=== PATIENT | male | born 1990 | race African-American/Black ===

== ENCOUNTER 2017-03-22 11:26 | Emergency (ER) | payer MEDICAID ==
[~2017-03-22] VITALS: Ht 172.7 cm; Wt 122.5 kg
[~2017-03-22 11:26] MED LIST: CORTISPORIN10 ML BOTH EARS; IBUPROFEN600 MG PO; NKM
[2017-03-22 12:11] LABS: APPEARANCE,URINE CLEAR; KETONES,URINE NEGATIVE (NEGATIVE); LEUKOCYTE ESTERASE ,URINE 1+ (NEGATIVE); NITRITE,URINE NEGATIVE (NEGATIVE); PH,URINE 6 (4.5-8.0); PROTEIN,URINE NEGATIVE (NEGATIVE); UROBILINOGEN,URINE NORMAL MG/DL (0.0-1.0)
[2017-03-22 12:15] LABS: BACTERIA,URINE FEW /HPF; RBC,URINE 0-2 /HPF (0 - 0); SQUAMOUS EPITHELIAL CELL,UR FEW /LPF (NONE/OCC)
[2017-03-22 12:22] VITALS: BP 135/79
[2017-03-22] MEDS ORDERED: VIBRAMYCIN100 MG ORAL (12:44)
[2017-03-22] MEDS ORDERED: cefTRIAXone 1 GM in NS 55 ML IVPB ONE (12:45)
[2017-03-22 13:22] VITALS: BP 135/79
--- NOTE | 2017-03-22 14:40 | Emergency Room Report ---
History of Present Illness General Chief Complaint: Male Urogenital Problems Source: Patient Present Illness HPI 26-year-old male presents to ED complaining of dysuria x3 days. Notes burning urination. Notes redness and irritation to the tip of his penis. Pain is dull. 5/10. Nonradiating. Denies fevers or chills. Denies discharge. Denies flank pain. States he is sexually active but with one partner. No other aggravating relieving. Denies any other associated symptoms Allergies: Coded Allergies: No Known Allergies (Unverified , 03/11/13) Patient History Past Medical History: none Past Surgical History: none Pertinent Family History: none Social History: Denies: alcohol use, drug use, smoking Immunizations: UTD Reviewed Nursing Documentation: PMH: Agreed, PSxH: Agreed Nursing Documentation-PMH Past Medical History: No Stated History Review of Systems All Other Systems: negative except mentioned in HPI Physical Exam Vital Signs Date Time Temp Pulse Resp B/P Pulse Ox O2 Delivery O2 Flow Rate FiO2 03/22/17 11:54 97.9 50 14 135/79 94 Room Air Sp02 EP Interpretation: reviewed, normal General Appearance: no apparent distress, alert, GCS 15, non-toxic Head: normocephalic Eyes: bilateral eye PERRL, bilateral eye normal inspection ENT: normal ENT inspection Neck: normal inspection Respiratory: normal inspection Cardiovascular #1: normal inspection Gastrointestinal: normal inspection Rectal: deferred Genitourinary: no CVA tenderness, other - erythema to urethral meatus Musculoskeletal: back normal, gait/station normal, normal range of motion, non- tender Neurologic: alert, oriented x3, responsive, motor strength/tone normal, sensory intact, speech normal Psychiatric: normal inspection Skin: normal inspection Lymphatic: normal inspection Medical Decision Making Diagnostic Impression: Primary Impression: Urethritis ER Course Hospital Course 26-year-old male presents to ED complaining of dysuria with urethral erythema Differential diagnoses include: UTI, cystitis, pyelonephritis Clinical course Patient placed on stretcher. After initial history and physical I ordered UA UA noted to be unremarkable. Symptoms more likely consistent with urethritis. Patient denies any discharge. Denies unprotected sex with multiple partners. We will treat clinically Given Rocephin in ED. Will prescribe doxycycline Diagnosis - urethritis Stable and discharged home with prescriptions for Rx doxycycline. Instructed to followup with PMD. Return to ED if symptoms recur or worsen Labs Test 03/22/17 12:00 Urine Color Pale yellow Urine Appearance Clear Urine pH 6 (4.5-8.0) Urine Specific [place] 1.015 (1.005-1.035) Urine Protein Negative (NEGATIVE) Urine Glucose (UA) Negative (NEGATIVE) Urine Ketones Negative (NEGATIVE) Urine Occult Blood Negative (NEGATIVE) Urine Nitrite Negative (NEGATIVE) Urine Bilirubin Negative (NEGATIVE) Urine Urobilinogen Normal MG/DL (0.0-1.0) Urine Leukocyte Esterase 1+ (NEGATIVE) Urine RBC 0-2 /HPF (0 - 0) Urine WBC 2-4 /HPF (0 - 0) Urine Squamous Epithelial Cells Few /LPF (NONE/OCC) Urine Bacteria Few /HPF (NONE) Last Vital Signs Date Time Temp Pulse Resp B/P Pulse Ox O2 Delivery O2 Flow Rate FiO2 03/22/17 13:22 97.9 68 16 135/79 96 Room Air Status: improved Disposition: HOME, SELF-CARE Condition: Stable Scripts Doxycycline Hyclate* (VIBRAMYCIN*) 100 Mg Capsule 100 MG ORAL EVERY 12 HOURS, #14 CAP 0 Refills Prov: YESENIA MAC M.D. 03/22/17 Referrals: NOT CHOSEN [facility]/,REFERRING Patient Instructions: Urethritis, Adult YESENIA MAC M.D. Mar 22, 2017 14:40
== END 2017-03-22 13:15 | disposition home or self-care (01) ==
LOC: EMR 12:25
DX: N34.2 Other urethritis (principal)
CPT/HCPCS: 81003; 96372; 99283; J0696

== ENCOUNTER 2017-05-29 15:51 | Emergency (ER) | payer MEDICAID ==
[~2017-05-29] VITALS: Ht 172.7 cm; Wt 117.0 kg
[~2017-05-29 15:51] MED LIST changes: +VIBRAMYCIN100 MG ORAL
[2017-05-29] MEDS ORDERED: IBUPROFEN600 MG ORAL (17:24)
--- NOTE | 2017-05-29 17:24 | Emergency Room Report ---
History of Present Illness General Chief Complaint: Pain Source: Patient (Sissy Leal) Present Illness HPI 26 YO Male with 8/10 in severity anterior left knee pain that had onset s/p lower extremity work out. pt. reports pain is exacerbated with flexion and when walking, and relieved with rest. pt. denies appreciable trauma or fall. denies swelling, bruising, erythema, or increased temperature to palpation. denies recent open wounds, fevers or chills. denies previous injury to the extremity. Denies numbness tingling or loss of sensation or gross motor movements of the extremities, incontinence of bowel or bladder. Denies CP, Palpitations, LOC, AMS, dizziness, Changes in Vision, Sensation, paresthesias, or a sudden severe headache. (Sissy Leal) Allergies: Coded Allergies: No Known Allergies (Unverified , 03/11/13) Patient History Past Medical History: see triage record Past Surgical History: none Pertinent Family History: none Immunizations: UTD Reviewed Nursing Documentation: PMH: Agreed, PSxH: Agreed (Sissy Leal) Nursing Documentation-PMH Past Medical History: No Stated History (Sissy Leal) Review of Systems All Other Systems: negative except mentioned in HPI (Sissy Leal) Physical Exam Vital Signs Date Time Temp Pulse Resp B/P Pulse Ox O2 Delivery O2 Flow Rate FiO2 05/29/17 15:59 98.1 81 15 115/75 97 Room Air Sp02 EP Interpretation: reviewed, normal General Appearance: no apparent distress, alert, GCS 15, non-toxic Head: normocephalic, atraumatic Eyes: bilateral eye normal inspection, bilateral eye PERRL ENT: hearing grossly normal, normal voice Neck: full range of motion Respiratory: lungs clear, normal breath sounds, speaking full sentences Cardiovascular #1: regular rate, rhythm, no edema Cardiovascular #2: 2+ dorsalis pedis (L) - posterior tibialis is 2+ Musculoskeletal: back normal, normal range of motion, no calf tenderness, tender - No appreciable TTP, no increased laxity on valgus or varus stressing. pt. does have pain with flexion, negative anterior and posterior drawer sign. pain with grind text, however pt. also has pain with full weight bearing just prior to grind test. no appreciable swelling, bruising, erythema or increased temperature to palpation, no palpable throbbing mass on the posterior aspect. Neurologic: alert, oriented x3, responsive, motor strength/tone normal, sensory intact, speech normal Psychiatric: judgement/insight normal, memory normal, mood/affect normal Skin: normal color, no rash, warm/dry, well hydrated (Sissy Leal.ACristy) Medical Decision Making PA Attestation Dr. Ugalde is my supervising Physician whom patient management has been discussed with. (Sissy Leal P.ACristy) Diagnostic Impression: Primary Impression: Left knee sprain Qualified Codes: S83.92XA - Sprain of unspecified site of left knee, initial encounter ER Course 26 YO Male with 8/10 in severity anterior left knee pain that had onset s/p lower extremity work out. pt. reports pain is exacerbated with flexion and when walking, and relieved with rest. pt. denies appreciable trauma or fall. denies swelling, bruising, erythema, or increased temperature to palpation. denies recent open wounds, fevers or chills. denies previous injury to the extremity. Denies numbness tingling or loss of sensation or gross motor movements of the extremities, incontinence of bowel or bladder. Denies CP, Palpitations, LOC, AMS, dizziness, Changes in Vision, Sensation, paresthesias, or a sudden severe headache. Ddx considered but are not limited to Fracture, dislocation, contusion, Sprain/ Strain/Spasm, Septic joint, gout, Ligamental injury. Vital signs: are WNL, pt. is afebrile H&PE are most consistent with musculoskeletal injury will perform imaging to r/ o fractures/dislocations. ORDERS: - X-ray Left knee 3 views - negative for fx, Dislocation, or significant soft tissue injury, per preliminary read in ED by Dr. Ugalde - interpretation is scribed by PA. ED INTERVENTIONS: - Motrin PO Pt. was also examined by Dr. Ugalde -Sidney wrap applied to the left knee by photonics technician. Pt. remains neurovascularly intact. -D/W pt. that he is stable for outpatient follow up with his PMD, and that he will be d/c with conservative treatment, and rest. d/w pt. if symptoms continue MRI may be required. d/w pt. to avoid doing squats and other strenuous lower extremity work outs for at least two weeks. DISCHARGE: At this time pt. is stable for d/c to home. Will provide printed patient care instructions, and any necessary prescriptions. Care plan and follow up instructions have been discussed with the patient prior to discharge. (Sissy Leal) ER Course Patient examined by me. I agree with plan. (Myles Ugalde M.D.) Other X-Ray Diagnostic Results Other X-Ray Diagnostic Results : Interpreting ER Provider: Scribe documentation reviewed by me and is accurate, Myles Ugalde MD. (Myles Ugalde M.D.) Last Vital Signs Date Time Temp Pulse Resp B/P Pulse Ox O2 Delivery O2 Flow Rate FiO2 05/29/17 15:59 98.1 81 15 115/75 97 Room Air (Sissy Leal) Disposition: HOME, SELF-CARE Condition: Stable Scripts Ibuprofen* (MOTRIN*) 600 Mg Tablet 600 MG ORAL THREE TIMES A DAY, #30 TAB 0 Refills Prov: Sissy Leal 05/29/17 Referrals: [facility],REFERR[facility] (PCP) Departure Forms: Return to Work Return to Work Date: Jun 01, 2017 Work Restrictions: No Heavy Lifting, No Prolonged Standing Other Restrictions: light duty x 1 week. Return to Full Activity: Jun 09, 2017 Patient Instructions: Knee Pain Additional Instructions: Take medications as directed. Follow up with a Primary Care Provider in 3-5 days, even if your symptoms have resolved. If symptoms persist MRI may be required. --Please review list of primary care clinics, if you do not already have a primary care provider Return sooner to ED if new symptoms occur, or current symptoms become worse. - Please note that this Emergency Department Report was dictated using [employer]drain[employer] inspector technology software, occasionally this can lead to erroneous entry secondary to interpretation by the dictation equipment. Sissy Leal May 29, 2017 17:24 Myles Ugalde M.D. Jun 01, 2017 05:55
[2017-05-29 17:38] VITALS: BP 115/75
[2017-05-29 17:39] VITALS: BP 115/75
--- NOTE | 2017-05-30 11:33 | Diagnostic Imaging Report ---
Indication: Pain 3 views of the left knee were obtained. Findings: No acute fracture, malalignment, or joint effusion are identified. Joint space is relatively well-maintained. Bone mineralization is within normal limits for age. Impression: Negative exam
== END 2017-05-29 17:42 | disposition home or self-care (01) ==
LOC: EMR 16:20
DX: S83.92XA Sprain of unspecified site of left knee, initial encounter (principal); X58.XXXA Exposure to other specified factors, initial encounter; Y93.9 Activity, unspecified; Y92.9 Unspecified place or not applicable
CPT/HCPCS: 29530; 99283

== ENCOUNTER 2018-02-06 11:10 | Emergency (ER) | payer MEDICAID ==
[~2018-02-06] VITALS: Ht 170.2 cm; Wt 118.8 kg
[~2018-02-06 11:10] MED LIST changes: +IBUPROFEN600 MG ORAL
[2018-02-06] MEDS ORDERED: Metoclopramide 10mg/2ml Inj IVP ONE (12:00)
[2018-02-06] MEDS ORDERED: DiphenhydrAMINE 50mg/ml Inj IVP ONE (12:00)
--- NOTE | 2018-02-06 12:02 | Emergency Room Report ---
History of Present Illness General Chief Complaint: Nausea, Vomiting, and Diarrhea Source: Patient Present Illness HPI Patient had gone fishing yesterday Had a burger on the boat Few hours after getting back he had increased diarrhea abdominal cramping also this morning reports vomiting Denies any chest pain or shortness of breath denies any back or flank pain Patient feels generally malaised and weak denies any rash Abdominal cramping has improved however given the diarrhea he was concerned Allergies: Coded Allergies: No Known Allergies (Unverified , 03/11/13) Patient History Past Medical History: see triage record Pertinent Family History: none Reviewed Nursing Documentation: PMH: Agreed; PSxH: Agreed Nursing Documentation-PMH Past Medical History: No Stated History Review of Systems All Other Systems: negative except mentioned in HPI Physical Exam Vital Signs Date Time Temp Pulse Resp B/P (MAP) Pulse Ox O2 Delivery O2 Flow Rate FiO2 02/06/18 11:14 98.1 69 18 148/88 100 Room Air 98.1 Sp02 EP Interpretation: reviewed, normal General Appearance: well appearing, no apparent distress Head: normocephalic, atraumatic Eyes: bilateral eye PERRL, bilateral eye EOMI ENT: hearing grossly normal, normal pharynx, TMs + canals normal, uvula midline Neck: full range of motion, supple, no meningismus, no bony tend Respiratory: lungs clear, normal breath sounds, no rhonchi, no respiratory distress, no retraction, no accessory muscle use Cardiovascular #1: normal peripheral pulses, regular rate, rhythm, no edema, no gallop, no JVD, no murmur Gastrointestinal: normal bowel sounds, non tender, soft, no mass, no organomegaly, non-distended, no guarding, no hernia, no pulsatile mass, no rebound Genitourinary: no CVA tenderness Musculoskeletal: normal inspection Neurologic: oriented x3, responsive, decontamination worker III-XII nml as tested, motor strength/ tone normal, sensory intact Psychiatric: mood/affect normal Skin: normal color, no rash, warm/dry, palpation normal Lymphatic: normal inspection, no adenopathy Medical Decision Making Diagnostic Impression: Primary Impression: Nausea, vomiting, and diarrhea ER Course With the history exam and presentation, multiple differentials considered, including but not limited to appendicitis, gastritis, cholecystitis, diverticulitis Patient clinically is consistent with infectious pathology Blood work is otherwise appropriate Patient has done significantly better throughout his stay further imaging was not performed patient does not have any lower abdominal discomfort initially or on repeat exam and will have close outpatient follow-up CBC negative CMP negative Last Vital Signs Date Time Temp Pulse Resp B/P (MAP) Pulse Ox O2 Delivery O2 Flow Rate FiO2 02/06/18 11:14 98.1 69 18 148/88 100 Room Air 98.1 Status: improved Disposition: HOME, SELF-CARE Condition: Improved Scripts Ondansetron* (ZOFRAN*) 4 Mg Tablet 4 MG ORAL Q6H PRN for Nausea & Vomiting for 5 Days, TAB Prov: Callie Wagner DO 02/06/18 Additional Instructions: Patient is provided with the discharge instructions notified to follow up with primary doctor in the next 2-3 days otherwise return to the er with any worsening symptoms. Please note that this report is being documented using [employer] technology. This can lead to erroneous entry secondary to incorrect interpretation by the dictating instrument. Callie Wagner DO Feb 06, 2018 12:02
[2018-02-06 12:18] VITALS: BP 148/88
[2018-02-06 12:32] LABS: BASOPHILS % (AUTO) 1.6 % (0.0-2.0); EOSINOPHILS % (AUTO) 0.6 % (0.0-3.0); HEMATOCRIT 44.2 % (42.0-52.0); HEMOGLOBIN 15.2 G/DL (14.2-18.0); LYMPHOCYTES % (AUTO) 30.4 % (20.0-45.0); MEAN CORPUSCULAR VOLUME 90 FL (80-99); MONOCYTES % (AUTO) 9.3 % (1.0-10.0); NEUTROPHILS % (AUTO) 58.2 % (45.0-75.0); PLATELET COUNT 266 K/UL (150-450); RED BLOOD COUNT 4.91 M/UL (4.70-6.10); RED CELL DISTRIBUTION WIDTH 11.9 % (11.6-14.8); WHITE BLOOD COUNT 5.1 K/UL (4.8-10.8)
[2018-02-06 12:49] LABS: ANION GAP 8 mmol/L (5-15); BLOOD UREA NITROGEN 11 mg/dL (7-18); CALCIUM 8.8 MG/DL (8.5-10.1); CARBON DIOXIDE 27 MMOL/L (21-32); CHLORIDE 106 MMOL/L (98-107); POTASSIUM 4.2 MMOL/L (3.5-5.1); SODIUM 141 MMOL/L (136-145)
[2018-02-06 12:53] LABS: ALANINE AMINOTRANSFERASE 42 U/L (12-78); ALBUMIN 3.7 G/DL (3.4-5.0); ALBUMIN/GLOBULIN RATIO 0.9 (1.0-2.7); ALKALINE PHOSPHATASE 64 U/L (46-116); ASPARTATE AMINO TRANSFERASE 34 U/L (15-37); BILIRUBIN,TOTAL 0.9 MG/DL (0.2-1.0)
[2018-02-06] MEDS ORDERED: ZOFRAN4 M3 ORAL (13:00)
[2018-02-06 13:10] VITALS: BP 100/66
== END 2018-02-06 13:21 | disposition home or self-care (01) ==
LOC: EMR 12:09
DX: R11.2 Nausea with vomiting, unspecified (principal); R19.7 Diarrhea, unspecified
CPT/HCPCS: 36415; 80053; 83690; 85025; 96361; 96374; 96375; 99284; J1200; J2765

== ENCOUNTER 2018-04-30 09:22 | Emergency (ER) | payer MEDICAID ==
[~2018-04-30] VITALS: Ht 172.7 cm; Wt 117.9 kg
[~2018-04-30 09:22] MED LIST changes: +ZOFRAN4 M3 ORAL
[2018-04-30 09:34] VITALS: BP 128/72
[2018-04-30] MEDS ORDERED: AMOXICILLIN500 MG ORAL (09:42)
[2018-04-30] MEDS ORDERED: IBUPROFEN600 MG ORAL (09:42)
[2018-04-30 09:46] VITALS: BP 128/72
--- NOTE | 2018-04-30 09:48 | Emergency Room Report ---
History of Present Illness General Chief Complaint: Earache Source: Patient Present Illness HPI Patient is a 27-year-old male who presented after increased sharp left-sided ear pain. Patient reports having gradual onset of symptoms. He denies any recent trauma. He denies recent swimming. He denies Q-tip use. He had prior history of cerumen impaction. Patient had been having some slight decreased hearing. He denies any ringing in his ears. Allergies: Coded Allergies: No Known Allergies (Unverified , 03/11/13) Patient History Reviewed Nursing Documentation: PMH: Agreed; PSxH: Agreed Nursing Documentation-PMH Past Medical History: No Stated History Review of Systems All Other Systems: negative except mentioned in HPI Physical Exam Vital Signs Date Time Temp Pulse Resp B/P (MAP) Pulse Ox O2 Delivery O2 Flow Rate FiO2 04/30/18 09:26 98.2 84 18 128/72 98 Room Air 98.2 General Appearance: well appearing, no apparent distress, alert, GCS 15 Head: normocephalic, atraumatic ENT: hearing grossly normal, normal voice, other - left ear tm erythema, bulging, fluid, no canal swelling or tragus tenderness Neck: full range of motion, supple Respiratory: no respiratory distress, speaking full sentences Cardiovascular #1: normal inspection, regular rate, rhythm Gastrointestinal: normal inspection Musculoskeletal: decreased range of mation, other - post surgical changes to both feet Neurologic: normal gait Psychiatric: mood/affect normal Skin: no rash Medical Decision Making Diagnostic Impression: Primary Impression: Otitis media ER Course Patient presented for ear pain. Differential diagnosis included was not limited to otitis media, malignant otitis externa, foreign body, cellulitis, mastoiditis, carotid dissection, myocardial infarction among others. Patient has a benign exam and does not appear to require any further imaging or laboratory testing at this time. The patient appears to have a bacterial otitis media. He was given ibuprofen.The prescriptions for amoxicillin was sent to his pharmacy The patient is advised to follow up with primary care doctor. Patient is advised to return if any worsening condition or if any changes in status that are concerning. This report is dictated with [employer] director global strategic publisher sales software which may occasionally lead to discrepancies related to use of this software. Last Vital Signs Date Time Temp Pulse Resp B/P (MAP) Pulse Ox O2 Delivery O2 Flow Rate FiO2 04/30/18 09:44 98.2 04/30/18 09:34 18 128/72 98 Room Air 04/30/18 09:26 84 Status: improved Disposition: HOME, SELF-CARE Condition: Stable Scripts Amoxicillin* (AMOXIL*) 500 Mg Capsule 500 MG ORAL THREE TIMES A DAY, #30 CAP Prov: Mike Hein MD 04/30/18 Ibuprofen* (MOTRIN*) 600 Mg Tablet 600 MG ORAL Q8H PRN for For Pain, #30 TAB 0 Refills Prov: Mike Hein MD 04/30/18 Patient Instructions: Otitis Media, Adult Mike Hein MD Apr 30, 2018 09:48
== END 2018-04-30 09:55 | disposition home or self-care (01) ==
LOC: EMR 09:32
DX: H66.92 Otitis media, unspecified, left ear (principal)
CPT/HCPCS: 99284

== ENCOUNTER 2018-05-05 10:58 | Emergency (ER) | payer MEDICAID ==
[~2018-05-05] VITALS: Ht 172.7 cm; Wt 127.0 kg
[~2018-05-05 10:58] MED LIST changes: +AMOXICILLIN500 MG ORAL
--- NOTE | 2018-05-05 11:18 | Emergency Room Report ---
History of Present Illness General Chief Complaint: Earache Source: Patient Present Illness HPI 27-year-old healthy male currently on amoxicillin and ibuprofen, presents with a feeling that his left ear is congested, he reports he does not hurt he's not had fevers is not having hearing loss or tinnitus, but he just feels slight congestion feeling. Last time he was checked out, he was told he may have a middle ear infection so is given the amoxicillin he is still currently finishing that course. Allergies: Coded Allergies: No Known Allergies (Unverified , 03/11/13) Patient History Past Medical History: see triage record Reviewed Nursing Documentation: PMH: Agreed; PSxH: Agreed Nursing Documentation-PMH Past Medical History: No Stated History Review of Systems Constitutional: Denies: fever Eye: Denies: acuity changes Respiratory: Denies: cough, shortness of breath Cardiovascular: Denies: chest pain Gastrointestinal: Denies: nausea, vomiting Skin: Denies: rash Neurological: Denies: headache Physical Exam Vital Signs Date Time Temp Pulse Resp B/P (MAP) Pulse Ox O2 Delivery O2 Flow Rate FiO2 05/05/18 11:06 98.2 71 16 140/82 97 Room Air 98.2 General Appearance: well appearing, no apparent distress Head: normocephalic, atraumatic ENT: normal ENT inspection, hearing grossly normal, normal pharynx, no angioedema, normal voice, TMs + canals normal, uvula midline, moist mucus membranes, other - Normal sinuses, no tenderness percussion Neck: full range of motion, supple, thyroid normal Respiratory: normal inspection, lungs clear, normal breath sounds, no respiratory distress, speaking full sentences Cardiovascular #1: regular rate, rhythm, no edema, no gallop, no murmur, no rub Cardiovascular #2: 2+ radial (R), 2+ radial (L) Gastrointestinal: non tender, soft, no mass Rectal: deferred Genitourinary: no CVA tenderness Musculoskeletal: no calf tenderness Neurologic: alert, mechanic insulator III-XII nml as tested, motor strength/tone normal, sensory intact, normal gait Psychiatric: mood/affect normal Skin: no rash Lymphatic: no adenopathy Medical Decision Making Diagnostic Impression: Primary Impression: Earache, left ER Course Left TM with minimal erythema around the edges, no effusion, normal canal, no significant earwax; Patient already amoxicillin, will recommend using Debrox to see if that causes relief, he perhaps is having eustachian tube dysfunction, recommended chewing gum and trying to pop his ears regularly. Last Vital Signs Date Time Temp Pulse Resp B/P (MAP) Pulse Ox O2 Delivery O2 Flow Rate FiO2 05/05/18 11:06 98.2 71 16 140/82 97 Room Air 98.2 Disposition: HOME, SELF-CARE Condition: Stable MARK DEE M.D May 05, 2018 11:18
[2018-05-05] MEDS ORDERED: DEBROX15 M1 LEFT EAR (11:20)
[2018-05-05 11:42] VITALS: BP 129/79
[2018-05-05 11:44] VITALS: BP 129/79
== END 2018-05-05 11:46 | disposition home or self-care (01) ==
LOC: EMR 11:17
DX: H92.02 Otalgia, left ear (principal)
CPT/HCPCS: 99283

== ENCOUNTER 2018-10-27 11:02 | Emergency (ER) | payer MEDICAID ==
[~2018-10-27] VITALS: Ht 172.7 cm; Wt 115.2 kg
[~2018-10-27 11:02] MED LIST changes: +DEBROX15 M1 LEFT EAR
--- NOTE | 2018-10-27 11:24 | NUR ---
ED Nurse Note: Provided mask.
[2018-10-27 12:07] VITALS: BP 120/76
--- NOTE | 2018-10-27 12:10 | NUR ---
ED Nurse Note:pt. came with flulike symptoms, no fever
--- NOTE | 2018-10-27 12:21 | Emergency Room Report ---
History of Present Illness General Chief Complaint: Flu Like Symptoms Source: Patient Present Illness HPI Pt. presents to the ED c/o 03/19 in severity painful cough, nasal congestion, fevers, chills and sputum x 3 weeks. reports has been taking care of his mother who is being treated for PNA. Denies sore throat, ear pain, high fevers, lethargy, neck pain/stiffness, irritability, photophobia dehydration, N/V/D. Denies Cp, Palpitations, LOC, AMS, seizures, paresthesias, or changes in Hearing or vision, no Sudden severe CRANE. Denies hx of smoking, asthma or COPD. Allergies: Coded Allergies: No Known Allergies (Unverified , 03/11/13) Patient History Past Medical History: see triage record Past Surgical History: none Pertinent Family History: none Immunizations: UTD Reviewed Nursing Documentation: PMH: Agreed; PSxH: Agreed Nursing Documentation-PMH Past Medical History: No History, Except For Review of Systems All Other Systems: negative except mentioned in HPI Physical Exam Vital Signs Date Time Temp Pulse Resp B/P (MAP) Pulse Ox O2 Delivery O2 Flow Rate FiO2 10/27/18 11:20 99.3 82 14 120/76 96 Room Air Sp02 EP Interpretation: reviewed, normal General Appearance: no apparent distress, alert, GCS 15, non-toxic Head: normocephalic, atraumatic Eyes: bilateral eye normal inspection, bilateral eye PERRL ENT: hearing grossly normal, normal voice Neck: full range of motion Respiratory: chest non-tender, lungs clear, normal breath sounds, no respiratory distress, no accessory muscle use, no wheezing, rhonchi, speaking full sentences Cardiovascular #1: regular rate, rhythm, no edema Gastrointestinal: non tender, soft Musculoskeletal: back normal, gait/station normal, normal range of motion, non- tender Neurologic: alert, oriented x3, responsive, motor strength/tone normal, sensory intact, speech normal, grossly normal Psychiatric: judgement/insight normal Skin: normal color, no rash, warm/dry, well hydrated Lymphatic: no adenopathy Medical Decision Making PA Attestation Dr. Lipscomb is my supervising physician whom pt. management has been discussed with. Diagnostic Impression: Primary Impression: Atypical pneumonia ER Course Pt. presents to the ED c/o 03/19 in severity painful cough, nasal congestion, fevers, chills and sputum x 3 weeks. reports has been taking care of his mother who is being treated for PNA. Denies sore throat, ear pain, high fevers, lethargy, neck pain/stiffness, irritability, photophobia dehydration, N/V/D. Denies Cp, Palpitations, LOC, AMS, seizures, paresthesias, or changes in Hearing or vision, no Sudden severe CRANE. Denies hx of smoking, asthma or COPD. Ddx considered but are not limited to URI, pneumonia, PE, strep pharyngitis, meningitis. Vital signs: Pt. is afebrile, the remaining VS are WNL H&PE are most consistent with Atypical PNA - oropharynx is not involved. Non- toxic in appearance, NAD ORDERS: none required at this time, the diagnosis is clinical ED INTERVENTIONS: None required at this time. DISCHARGE: At this time pt. is stable for d/c to home. Will provide printed patient care instructions, and any necessary prescriptions. Care plan and follow up instructions have been discussed with the patient prior to discharge. Last Vital Signs Date Time Temp Pulse Resp B/P (MAP) Pulse Ox O2 Delivery O2 Flow Rate FiO2 10/27/18 12:07 80 14 Room Air 10/27/18 12:07 99.3 120/76 96 Status: improved Disposition: HOME, SELF-CARE Condition: Stable Scripts Azithromycin* (ZITHROMAX*) 250 Mg Tablet 250 MG ORAL DAILY, #6 TAB 0 Refills Take two tables once daily for 1 day, then one tablet once daily for 4 days. Prov: Sissy Leal 10/27/18 Cetirizine Hcl/Pseudoephedrine (ZYRTEC-D TABLET) 1 Each Tab.er.12h 1 EACH ORAL Q12HR, #30 TAB Prov: Sissy Leal 10/27/18 Guaifenesin (Guaifenesin) 1,200 Mg Tab.er.12h 1200 MG PO Q12HR for 10 Days, #20 TAB Prov: Sissy Leal 10/27/18 Codeine/Promethazine Hcl* (PROMETHAZINE-CODEINE SYRUP*) 118 Ml Syrup 5 ML ORAL Q6H PRN for For Cough, #120 ML 0 Refills Prov: Sissy Leal 10/27/18 Patient Instructions: Upper Respiratory Infection, Adult, [id number] Additional Instructions: Take medications as directed. Follow up with a Primary Care Provider in 3-5 days, even if your symptoms have resolved. --Please review list of primary care clinics, if you do not already have a primary care provider Return sooner to ED if new symptoms occur, or current symptoms become worse. Do not drink alcohol, drive, or operate heavy machinery while taking Cough Syrup as this may cause drowsiness. - Please note that this Emergency Department Report was dictated using [facility] and vent machine operator technology software, occasionally this can lead to erroneous entry secondary to interpretation by the dictation equipment. Sissy Leal Oct 27, 2018 12:21
[2018-10-27] MEDS ORDERED: PROMETHAZINE-C118 M1 ORAL (12:23)
[2018-10-27] MEDS ORDERED: ZYRTEC-D TABLE1 EACH ORAL (12:23)
[2018-10-27] MEDS ORDERED: GUAIFENESIN1200 MG PO (12:23)
[2018-10-27] MEDS ORDERED: ZITHROMAX250 MG ORAL (12:23)
[2018-10-27 12:33] VITALS: BP 120/76
--- NOTE | 2018-10-27 12:34 | NUR ---
ED Nurse Note:pt. was clearted for d/c by ER provider, he received d/c instructions with prescriptions and left ER with steady gait
== END 2018-10-27 12:35 | disposition home or self-care (01) ==
LOC: EMR 12:21
DX: J18.9 Pneumonia, unspecified organism (principal)
CPT/HCPCS: 99283

== ENCOUNTER 2019-12-27 17:32 | Emergency (ER) | payer MEDICAID ==
[~2019-12-27] VITALS: Ht 185.4 cm; Wt 90.7 kg
[~2019-12-27 17:32] MED LIST changes: +GUAIFENESIN1200 MG PO; +PROMETHAZINE-C118 M1 ORAL; +ZITHROMAX250 MG ORAL; +ZYRTEC-D TABLE1 EACH ORAL
[2019-12-27 17:35] VITALS: BP 151/109
--- NOTE | 2019-12-27 18:09 | Emergency Room Report ---
History of Present Illness General Chief Complaint: Sore Throat Source: Patient Present Illness HPI 29 YO Male presents to the ED c/o FB sensation in the throat x 2 days He describes a thin string sensation. Denies pain, tonsillar swelling, and nasal congestion x 2 days. He reports slight intermittent cough that has been going on x 1 week. denies wheezing or mucus production. Denies swollen tender lymph nodes, headache, neck pain/stiffness, photophobia, body aches, fatigue, fevers or chills. Pt. denies eating anything with small bones or that slivers. Patient states that he has tried gargling with water and using a toothbrush to relieve his symptoms. Patient states he continues to feel a soft string sensation in the back left part of his throat. COVID-19 risk:Contact w/high r: No COVID-19 risk:Travel to affect: No Has patient experienced carvajal: Yes Coronavirus symptoms experienc: Cough Allergies: Coded Allergies: No Known Allergies (Unverified , 03/11/13) Patient History Past Medical History: see triage record Past Surgical History: none Pertinent Family History: none Immunizations: UTD Reviewed Nursing Documentation: PMH: Agreed; PSxH: Agreed Nursing Documentation-PMH Past Medical History: No Stated History Review of Systems All Other Systems: negative except mentioned in HPI Physical Exam Vital Signs Date Time Temp Pulse Resp B/P (MAP) Pulse Ox O2 Delivery O2 Flow Rate FiO2 12/27/19 17:22 98.6 89 17 151/109 (123) 98 Room Air Sp02 EP Interpretation: reviewed, normal General Appearance: no apparent distress, alert, GCS 15, non-toxic Head: normocephalic, atraumatic Eyes: bilateral eye normal inspection, bilateral eye PERRL ENT: hearing grossly normal, normal pharynx, normal voice, uvula midline, moist mucus membranes, other - NO erythema, no tonsillar swelling, mild cobble stoning noted, no obvious visualized fb. No stridor. Neck: full range of motion, no meningismus, other - no stridor Respiratory: chest non-tender, lungs clear, normal breath sounds, no rhonchi, no respiratory distress, no accessory muscle use, no wheezing, speaking full sentences Cardiovascular #1: regular rate, rhythm, normal capillary refill Musculoskeletal: normal range of motion, gait/station normal, non-tender Neurologic: alert, motor strength/tone normal, oriented x3, sensory intact, responsive, speech normal Psychiatric: judgement/insight normal Lymphatic: no adenopathy Medical Decision Making PA Attestation Dr. Peralta is my supervising Physician whom patient management has been discussed with. Diagnostic Impression: Primary Impression: Foreign body sensation in throat ER Course 29 YO Male presents to the ED c/o FB sensation in the throat x 2 days He describes a thin string sensation. Denies pain, tonsillar swelling, and nasal congestion x 2 days. He reports slight intermittent cough that has been going on x 1 week. denies wheezing or mucus production. Denies swollen tender lymph nodes, headache, neck pain/stiffness, photophobia, body aches, fatigue, fevers or chills. Pt. denies eating anything with small bones or that slivers. Patient states that he has tried gargling with water and using a toothbrush to relieve his symptoms. Patient states he continues to feel a soft string sensation in the back left part of his throat. Ddx considered but are not limited to: pharyngitis, strep, TRUCK DRIVER RUBBISH COLLECTOR, ludwigs angina, URI Vital signs: are WNL, pt. is afebrile H&PE are most consistent with: Soft foreign body sensation in the throat in a person who is nontoxic in appearance in no acute distress has a patent airway without stridor. ORDERS: None required at this time as the diagnosis is clinical d/w pt. due to having cough which is a symptom of COVID-19, that he should self quarantine for at least 2 week. ED INTERVENTIONS: none required at this time. d/w pt. ENT follow up as outpatient for non-emergent eval/scoping PRN. DISCHARGE: At this time pt. is stable for d/c to home. Will provide printed patient care instructions, and any necessary prescriptions. Care plan and follow up instructions have been discussed with the patient prior to discharge. Last Vital Signs Date Time Temp Pulse Resp B/P (MAP) Pulse Ox O2 Delivery O2 Flow Rate FiO2 12/27/19 17:22 98.6 89 17 151/109 (123) 98 Room Air Disposition: HOME, SELF-CARE Condition: Stable Scripts Lidocaine HCl 2% Viscous (Lidocaine HCl 2% Viscous) 100 Ml Solution 15 ML ORAL QID, #200 ML Prov: Sissy Leal 12/27/19 Referrals: Nicole Aden. [facility] Patient Instructions: Salt Water Gargle Additional Instructions: ~ ~ An emergent medical condition has not been identified based on this patients presentation, exam and any necessary testing/imaging. The patient is determined to be stable for outpatient follow-up and management of symptoms by a primary care provider. Take medications as directed. Follow up with a Primary Care Provider in 3-5 days FOR ENT REFERRAL FOR NON OBSTRUCTING FB SENSATION IN THROAT. --Please review list of primary care clinics, if you do not already have a primary care provider Return sooner to ED if new symptoms occur, or current symptoms become worse. - Please note that this Emergency Department Report was dictated using Mozyadministrative accountant technology software, occasionally this can lead to erroneous entry secondary to interpretation by the dictation equipment. Sissy Leal Dec 27, 2019 18:09
[2019-12-27] MEDS ORDERED: LIDOCAINE VISC100 ML ORAL (18:10)
[2019-12-27 18:20] VITALS: BP 148/95
== END 2019-12-27 18:20 | disposition home or self-care (01) ==
LOC: EMR 18:15
DX: R09.89 Other specified symptoms and signs involving the circulatory and respiratory systems (principal); R05 Cough
CPT/HCPCS: 99282

== ENCOUNTER 2020-01-24 09:31 | Emergency (ER) | payer MEDICAID ==
[~2020-01-24] VITALS: Ht 172.7 cm; Wt 121.1 kg
[~2020-01-24 09:31] MED LIST changes: +LIDOCAINE VISC100 ML ORAL
[2020-01-24 09:33] VITALS: BP 143/84
--- NOTE | 2020-01-24 09:56 | Emergency Room Report ---
History of Present Illness General Chief Complaint: Sore Throat Source: Patient Present Illness HPI The patient states 3 weeks ago he had an episode of sorethroat/pain in throat. He was given lidocaine orally at that time and it had improved his symptoms. He states he is still feels a continued sensation of having to clear his throat. He states he feels like there is mucus in his throat but there is no mucus that he is able to cough out. He denies fever or chills. He denies nausea or vomiting. He states that he has an intermittent chest pain for very long time. He was seen by his nike athlete and told that he needed to go undergo an MRI of his chest to further assess this. However, he is awaiting approval by his insurance company for the MRI. He states he has seen a pulp tester in the past and was clear. He does have an inhaler that he was given by the pulp tester to use as needed. He states he does not use it very often. However he states that last night he was feeling very short of breath and he used it and about 30 minutes later he had significant improvement in his sensation of shortness of breath. He denies cough. He denies abdominal pain. He denies headache or neck pain. He denies difficulty swallowing. He has no other complaints. Allergies: Coded Allergies: No Known Allergies (Unverified , 03/11/13) COVID-19 Screening Contact w/high risk pt: No Recent Travel to affected area: No Experienced COVID-19 symptoms?: Yes COVID-19 symptoms experienced: Shortness of Breath Patient History Past Medical History: none, see triage record Social History: Denies: smoking, alcohol use, drug use Reviewed Nursing Documentation: PMH: Agreed; PSxH: Agreed Nursing Documentation-PMH Past Medical History: No Stated History Review of Systems All Other Systems: negative except mentioned in HPI Physical Exam Vital Signs Date Time Temp Pulse Resp B/P (MAP) Pulse Ox O2 Delivery O2 Flow Rate FiO2 01/24/20 09:25 98.4 86 20 143/84 (103) 97 Room Air Sp02 EP Interpretation: reviewed, normal General Appearance: no apparent distress, alert, GCS 15, non-toxic, obese Head: normocephalic, atraumatic Eyes: bilateral eye normal inspection, bilateral eye PERRL ENT: hearing grossly normal, normal pharynx, no angioedema, normal voice Neck: full range of motion, supple/symm/no masses Respiratory: chest non-tender, lungs clear, normal breath sounds, no respiratory distress, no retraction, no accessory muscle use, speaking full sentences Cardiovascular #1: regular rate, rhythm, no edema Rectal: deferred Musculoskeletal: normal range of motion, gait/station normal, non-tender Neurologic: alert, motor strength/tone normal, oriented x3, sensory intact, responsive, speech normal Psychiatric: judgement/insight normal, memory normal, mood/affect normal, no suicidal/homicidal ideation Skin: no rash, normal color Medical Decision Making Diagnostic Impression: Primary Impression: Allergic rhinitis Additional Impressions: Post-nasal drip Shortness of breath ER Course I suspect this patient symptoms are multifactorial. The patient may have a mild allergic rhinitis causing postnasal drip and mild bronchospasm. I also suspect an element of anxiety and panic. Patient is presenting during a global pandemic of COVID-19. The patient with further discussion he does admit he has high anxiety related to the rapid spread of COVID-19. Patient's vital signs were normal, specifically the patient's pulse oxygenation was 97% on room air. Further, the patient was without any type of respiratory distress. I did obtain an EKG as a precaution and this was unremarkable. I also obtained a chest x-ray and that was within normal limits also. At this time, I do not feel that a COVID-19 test would change the management in this patient. Is a small [facility] with very limited access to COVID-19 testing at this time, these tests are reserved for patients being admitted to the hospital that are sick. I did educate the patient that across the street from our hospital there is a drive-through elective coronavirus test tent. If the patient would like to know his status for his own curiosity, he was instructed that he could obtain that testing at that location immediately across the street. At this time, given the limitation in testing materials, the patient does not meet criteria for COVID-19 testing. Overall, this patient's evaluation is benign. I will treat the patient with Zyrtec, albuterol inhaler and a PPI. The patient was instructed to follow-up closely with her primary care physician. At this time I did not identify an emergency medical condition. The patient is given close return precautions and follow-up instructions. This patient was evaluated in the context of the global COVID-19 pandemic, which necessitated consideration that the patient might be at risk for infection with the [id number] virus that causes COVID-19. Institutional protocols in a log rhythms that pertain to the evaluation of patients at risk for COVID-19 and the state of rapid change based on information released by multiple regulatory bodies including the CDC and federal and state organizations. These policies and algorithms were followed during the patient' s care in the ED. EKG Diagnostic Results Rate: normal Rhythm: NSR ST Segments: no acute changes Rhythm Strip Diag. Results EP Interpretation: yes Rate: 80's Rhythm: NSR, no PVC's, no ectopy Chest X-Ray Diagnostic Results Chest X-Ray Diagnostic Results : Chest X-Ray Ordered: Yes # of Views/Limited/Complete: 1 View Indication: Shortness of Breath EP Interpretation: Yes Interpretation: no consolidation, no effusion, no pneumothorax, no acute cardiopulmonary disease Impression: No acute disease Electronically Signed by: Gretchen Upton DO Last Vital Signs Date Time Temp Pulse Resp B/P (MAP) Pulse Ox O2 Delivery O2 Flow Rate FiO2 01/24/20 09:33 98.4 86 20 143/84 97 Room Air Status: improved Disposition: HOME, SELF-CARE Condition: Improved Gretchen Upton DO Jan 24, 2020 09:56
[2020-01-24] MEDS ORDERED: ALBUTEROL SULF8.5 G1 INH (10:42)
[2020-01-24] MEDS ORDERED: PRILOSEC OTC20 MG ORAL (10:42)
[2020-01-24] MEDS ORDERED: ZYRTEC10 MG ORAL (10:42)
[2020-01-24 10:55] VITALS: BP 139/75
--- NOTE | 2020-01-24 12:14 | Diagnostic Imaging Report ---
Indication: Shortness of breath Technique: One view of the chest Comparison: none Findings: Lungs and pleural spaces are clear. Heart size is normal. Impression: No acute process
== END 2020-01-24 10:55 | disposition home or self-care (01) ==
LOC: EDBD 09:31 → EMR 10:00
DX: J30.9 Allergic rhinitis, unspecified (principal); R09.82 Postnasal drip; R06.02 Shortness of breath; R07.9 Chest pain, unspecified; E66.9 Obesity, unspecified; Z68.41 Body mass index [BMI] 40.0-44.9, adult
CPT/HCPCS: 71045; 93005; Z7502; 99283

== ENCOUNTER 2020-03-26 10:44 | Emergency (ER) | payer MEDICAID ==
[~2020-03-26] VITALS: Ht 172.7 cm; Wt 121.6 kg
[~2020-03-26 10:44] MED LIST changes: +ALBUTEROL SULF8.5 G1 INH; +PRILOSEC OTC20 MG ORAL; +ZYRTEC10 MG ORAL
--- NOTE | 2020-03-26 11:11 | Emergency Room Report ---
History of Present Illness General Chief Complaint: Abdominal Pain Source: Patient Present Illness HPI Disclaimer: Please note that this report is being documented using DRAGON technology. This can lead to erroneous entry secondary to incorrect interpretation by the dictating instrument. HPI: 29-year-old male presents for evaluation abdominal pain. He reports left lower quadrant cramping over the past 4 days. Cannot recall an inciting event. Currently not experiencing significant discomfort. He noticed that is difficult to initiate urination requiring extra pressure to empty his bladder. Denies dysuria, hematuria, flank pain, fever, chills, nausea, vomiting, diarrhea. He reports recent constipation. 1 week ago he started taking amoxicillin for an upper respiratory infection. Symptoms improving. No history of abdominal surgery. Denies testicular pain, groin swelling, prior surgery, hernia. Reports prior history of UTI. Sexually active with one partner. PMH: Denies PSH: Denies Allergies: Denies Social Hx: Denies Allergies: Coded Allergies: No Known Allergies (Unverified , 03/11/13) COVID-19 Screening Contact w/high risk pt: No Recent Travel to affected area: No Experienced COVID-19 symptoms?: No COVID-19 symptoms experienced: Shortness of Breath COVID-19 Testing performed POLE CLIMBER: No Nursing Documentation-PMH Past Medical History: No History, Except For Review of Systems All Other Systems: negative except mentioned in HPI Physical Exam Vital Signs Date Time Temp Pulse Resp B/P (MAP) Pulse Ox O2 Delivery O2 Flow Rate FiO2 03/26/20 10:49 98.2 71 20 116/77 (90) 95 Room Air General: Awake and alert, no acute distress HEENT: NC/AT. EOMI. Cardiovascular: RRR. S1 and S2 normal. No murmur appreciated Resp: Normal work of breathing. No cough, wheezing or crackles appreciated Abdomen: Abdomen is soft, nondistended. Mild tender to palpation left lower quadrant without rebound. No palpable defect in the groin, no hernia. No tenderness palpation of the right lower quadrant, no rebound. No upper abdominal tenderness. : No abdominal wall defect, no obvious hernia. Testes anatomic position, nontender, no edema, no overlying scrotal edema or erythema. Uncircumcised male with easily retractable foreskin. No discharge, no bleeding from the meatus. Skin: Intact. No abrasions, laceration or rash over the exposed skin MSK: Normal tone and bulk. Moving all extremities. No obvious deformity. Neuro: Awake and alert. Mentating appropriately. Medical Decision Making Diagnostic Impression: Primary Impression: Abdominal cramping Additional Impression: Constipation ER Course Is a 29-year-old male presenting for evaluation of abdominal pain. Differential includes is not limited to UTI, pyelonephritis, STI, hernia, constipation, impaction, medication side effect. He is overall well-appearing stable vital signs are benign appearing abdomen. Labs are returned within normal limits. No evidence of acute urinary tract infection. Nonobstructive bowel gas pattern on x-ray though consistent with constipation. Do not believe the patient requires advanced imaging at this time. Will try patient on MiraLAX for a few weeks and see how are managed. He is to follow-up with his PMD. Discussed reasons to return to the emergency department. He understands and agrees with this treatment plan. Laboratory Tests Test 03/26/20 11:20 White Blood Count 4.3 K/UL (4.8-10.8) L Red Blood Count 5.09 M/UL (4.70-6.10) Hemoglobin 15.0 G/DL (14.2-18.0) Hematocrit 47.7 % (42.0-52.0) Mean Corpuscular Volume 94 FL (80-99) Mean Corpuscular Hemoglobin 29.5 PG (27.0-31.0) Mean Corpuscular Hemoglobin Concent 31.6 G/DL (32.0-36.0) L Red Cell Distribution Width 13.1 % (11.6-14.8) Platelet Count 300 K/UL (150-450) Mean Platelet Volume 6.9 FL (6.5-10.1) Neutrophils (%) (Auto) 47.8 % (45.0-75.0) Lymphocytes (%) (Auto) 39.4 % (20.0-45.0) Monocytes (%) (Auto) 8.4 % (1.0-10.0) Eosinophils (%) (Auto) 0.8 % (0.0-3.0) Basophils (%) (Auto) 3.6 % (0.0-2.0) H Urine Color Pale yellow Urine Appearance Clear Urine pH 7 (4.5-8.0) Urine Specific [place] 1.010 (1.005-1.035) Urine Protein Negative (NEGATIVE) Urine Glucose (UA) Negative (NEGATIVE) Urine Ketones Negative (NEGATIVE) Urine Blood Negative (NEGATIVE) Urine Nitrite Negative (NEGATIVE) Urine Bilirubin Negative (NEGATIVE) Urine Urobilinogen Normal MG/DL (0.0-1.0) Urine Leukocyte Esterase Negative (NEGATIVE) Sodium Level 139 MMOL/L (136-145) Potassium Level 4.3 MMOL/L (3.5-5.1) Chloride Level 104 MMOL/L (98-107) Carbon Dioxide Level 26 MMOL/L (21-32) Anion Gap 10 mmol/L (5-15) Blood Urea Nitrogen 12 mg/dL (7-18) Creatinine 1.2 MG/DL (0.55-1.30) Estimated Glomerular Filtration Rate > 60 mL/min (>60) Glucose Level 96 MG/DL (74-106) Calcium Level 9.0 MG/DL (8.5-10.1) Total Bilirubin 0.8 MG/DL (0.2-1.0) Aspartate Amino Transferase (AST) 26 U/L (15-37) Alanine Aminotransferase (ALT) 30 U/L (12-78) Alkaline Phosphatase 63 U/L (46-116) Total Protein 7.8 G/DL (6.4-8.2) Albumin 4.0 G/DL (3.4-5.0) Globulin 3.8 g/dL Albumin/Globulin Ratio 1.1 (1.0-2.7) Lipase 139 U/L (73-393) Other X-Ray Diagnostic Results Other X-Ray Diagnostic Results : X-Ray ordered: Abdomen # of Views/Limited Vs Complete: 1 View Indication: Pain EP Interpretation: Yes Interpretation: nonspecific bowel gas, no sbo, other - Constipation Impression: No acute disease - Constipation Electronically Signed by: Electronically signed by Dr. Chetan Peralta Last Vital Signs Date Time Temp Pulse Resp B/P (MAP) Pulse Ox O2 Delivery O2 Flow Rate FiO2 03/26/20 10:49 98.2 71 20 116/77 (90) 95 Room Air Disposition: HOME, SELF-CARE Condition: Stable Scripts Polyethylene Glycol 3350* (MIRALAX*) 17 Gm Powd.pack 17 GM ORAL DAILY for 14 Days, #14 PACKET Prov: Chetan Peralta MD 03/26/20 Chetan Peralta MD Mar 26, 2020 11:11
[2020-03-26 11:44] LABS: APPEARANCE,URINE CLEAR; BILIRUBIN, URINE NEGATIVE (NEGATIVE); COLOR,URINE PALE YELLOW; GLUCOSE, URINE (UA) NEGATIVE (NEGATIVE); KETONES,URINE NEGATIVE (NEGATIVE); LEUKOCYTE ESTERASE ,URINE NEGATIVE (NEGATIVE); NITRITE,URINE NEGATIVE (NEGATIVE); PH,URINE 7 (4.5-8.0); PROTEIN,URINE NEGATIVE (NEGATIVE); UROBILINOGEN,URINE NORMAL MG/DL (0.0-1.0)
[2020-03-26 11:48] LABS: BASOPHILS % (AUTO) 3.6 % (0.0-2.0); EOSINOPHILS % (AUTO) 0.8 % (0.0-3.0); HEMATOCRIT 47.7 % (42.0-52.0); LYMPHOCYTES % (AUTO) 39.4 % (20.0-45.0); MEAN CORPUSCULAR VOLUME 94 FL (80-99); MONOCYTES % (AUTO) 8.4 % (1.0-10.0); NEUTROPHILS % (AUTO) 47.8 % (45.0-75.0); PLATELET COUNT 300 K/UL (150-450); RED BLOOD COUNT 5.09 M/UL (4.70-6.10); RED CELL DISTRIBUTION WIDTH 13.1 % (11.6-14.8); WHITE BLOOD COUNT 4.3 K/UL (4.8-10.8)
--- NOTE | 2020-03-26 11:56 | Diagnostic Imaging Report ---
EXAM: XRAY Abdomen 1v HISTORY: Reason For Exam: ABD PAIN COMPARISON: None. TECHNIQUE: Frontal view of the abdomen obtained. FINDINGS: There is a nonobstructed bowel gas pattern. Mild increased stool lucencies noted in the right colon. No definite pathologic calcifications identified. There is no sign of free air. No acute abnormality noted of the visualized osseous structures. IMPRESSION: NO SIGN OF ACUTE DISEASE.
[2020-03-26] MEDS ORDERED: MIRALAX17 G2 ORAL (11:58)
[2020-03-26 12:05] LABS: ANION GAP 10 mmol/L (5-15); BLOOD UREA NITROGEN 12 mg/dL (7-18); CARBON DIOXIDE 26 MMOL/L (21-32); CHLORIDE 104 MMOL/L (98-107); CREATININE 1.2 MG/DL (0.55-1.30); POTASSIUM 4.3 MMOL/L (3.5-5.1); SODIUM 139 MMOL/L (136-145)
[2020-03-26 12:09] LABS: ALANINE AMINOTRANSFERASE 30 U/L (12-78); ALBUMIN/GLOBULIN RATIO 1.1 (1.0-2.7); ALKALINE PHOSPHATASE 63 U/L (46-116); ASPARTATE AMINO TRANSFERASE 26 U/L (15-37); BILIRUBIN,TOTAL 0.8 MG/DL (0.2-1.0)
[2020-03-26 12:19] VITALS: BP 116/77
== END 2020-03-26 12:20 | disposition home or self-care (01) ==
LOC: EMR 11:20
DX: R10.32 Left lower quadrant pain (principal); K59.00 Constipation, unspecified
CPT/HCPCS: 36415; 74018; 80053; 81003; 83690; 85025; Z7502; 99283

== ENCOUNTER 2020-05-31 14:53 | Emergency (ER) | payer MEDICAID ==
[~2020-05-31] VITALS: Ht 172.7 cm; Wt 114.8 kg
[~2020-05-31 14:53] MED LIST changes: +MIRALAX17 G2 ORAL
[2020-05-31 15:07] VITALS: BP 116/82
--- NOTE | 2020-05-31 15:30 | NUR ---
ED Nurse Note: Patient sitting in RME. Patient awake, alert, oriented x 4. Regular, unlabored breathing noted. No facial grimacing or guarding noted. Patient denies fever, chills or N/V or D.
--- NOTE | 2020-05-31 15:40 | Emergency Room Report ---
History of Present Illness General Chief Complaint: Upper Respiratory Illness Present Illness HPI 29-year-old male presents to the emergency department with 2 complaints. First of which is a recurrence of symptoms of mucus sensation collected in his throat that he is unable to clear x 1 week. It is now causing him to cough when laying down at night. Patient reports he has not followed up with ENT since last visit for this same complaint 3 months ago. He denies fevers or chills. He denies wheezing, shortness of breath or dyspnea. Patient denies swelling of the throat or tonsils. He denies having postnasal drainage or allergies. Patient states he does not think that he has acid reflux however he was prescribed omeprazole at one point for which she had an allergic reaction to. No other aggravating or relieving factors at this time. Patient second complaint is 5 out of 10 severity pain to the left ankle where he previously had orthopedic surgery of the complicated ankle fracture with retained surgical hardware. Patient denies trauma or fall he reports that he never had pain prior to 2 days ago. Patient reports he notices pain come on after moderate walking. He denies swelling, erythema, bruising, paresthesias. Patient reports he is able to bear weight. 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 COVID-19 Screening: Negative COVID-19 COVID-19 Testing Source: january 2020 Patient History Past Medical History: see triage record Past Surgical History: none Pertinent Family History: none Reviewed Nursing Documentation: PMH: Agreed; PSxH: Agreed Review of Systems All Other Systems: negative except mentioned in HPI Physical Exam Vital Signs Date Time Temp Pulse Resp B/P (MAP) Pulse Ox O2 Delivery O2 Flow Rate FiO2 05/31/20 15:07 98.2 72 20 116/82 (93) 98 Room Air Sp02 EP Interpretation: reviewed, normal General Appearance: no apparent distress, alert, GCS 15, non-toxic Head: normocephalic, atraumatic Eyes: bilateral eye normal inspection, bilateral eye PERRL ENT: hearing grossly normal, normal pharynx, normal voice, uvula midline, moist mucus membranes Neck: full range of motion, no meningismus, no bony tend Respiratory: chest non-tender, lungs clear, normal breath sounds, no respiratory distress, no accessory muscle use, no wheezing, speaking full sentences Cardiovascular #1: regular rate, rhythm, normal capillary refill Musculoskeletal: back normal, normal range of motion, gait/station normal, tender - Not tender at this time. Pt. signals that when tenderness occurs it is in the region of surgical scar. , other - no swelling, no erythema, no bruising, no warmth. Neurologic: alert, motor strength/tone normal, oriented x3, sensory intact, responsive, speech normal Psychiatric: judgement/insight normal Skin: no rash, normal color, other - no swelling, no erythema, no bruising, no warmth. Medical Decision Making PA Attestation Dr. Jenkins is my supervising Physician whom patient management has been discussed with. Diagnostic Impression: Primary Impression: Throat discomfort Additional Impression: Ankle pain, left Qualified Codes: M25.572 - Pain in left ankle and joints of left foot ER Course 29-year-old male presents to the emergency department with 2 complaints. First of which is a recurrence of symptoms of mucus sensation collected in his throat that he is unable to clear. It is now causing him to cough when laying down at night. Patient reports he has not followed up with ENT since last visit for this same complaint 3 months ago. He denies fevers or chills. He denies wheezing, shortness of breath or dyspnea. Patient denies swelling of the throat or tonsils. He denies having postnasal drainage or allergies. Patient states he does not think that he has acid reflux however he was prescribed omeprazole at one point for which she had an allergic reaction to. No other aggravating or relieving factors at this time. Patient second complaint is 8 out of 10 severity pain to the left ankle where he previously had orthopedic surgery of the complicated ankle fracture with retained surgical hardware. Patient denies trauma or fall he reports that he never had pain prior to 2 days ago. Patient reports he notices pain come on after moderate walking. He denies swelling, erythema, bruising, paresthesias. Patient reports he is able to bear weight. Ddx considered but are not limited to: pharyngitis, strep, PROCESSING CLERK, marina's angina , URI, hardware complication, cellulitis, ankle sprain just name a few Vital signs: are WNL, pt. is afebrile H&PE are most consistent with: Excessive mucus in the throat without evidence of bacterial infection or suspicion for viral infection that is become a chronic issue. Nontraumatic left ankle pain in an area that has surgical hardware without evidence of infection. ORDERS: None required at this time as the diagnosis is clinical ED INTERVENTIONS: none required at this time. -I do not identify an emergent condition at this time. With current presentation , pt. is stable for close outpatient follow up and conservative treatment. D/ w pt. to return promptly to ED with worsening or new symptoms.- Pt. verbalizes' understanding and agreement with proposed treatment plan. I discussed with this patient that he needs to follow-up with orthopedic surgeon regarding his left ankle pain as comparison to previous imaging may be required. No suspicion of acute fractures. DISCHARGE: At this time pt. is stable for d/c to home. Will provide printed patient care instructions, and any necessary prescriptions. Care plan and follow up instructions have been discussed with the patient prior to discharge. Last Vital Signs Date Time Temp Pulse Resp B/P (MAP) Pulse Ox O2 Delivery O2 Flow Rate FiO2 05/31/20 15:07 98.2 72 20 116/82 (93) 98 Room Air Disposition: HOME, SELF-CARE Condition: Stable Scripts Acetaminophen With Codeine (T#3) (TYLENOL #3 TAB*) Y Tab 1 TAB ORAL Q6H PRN for For Pain, #6 TAB Prov: Sissy Leal 05/31/20 Famotidine* (Pepcid 20mg tablet*) 20 Mg Tablet 20 MG ORAL TWICE A DAY, #14 TAB 0 Refills Prov: Sissy Leal 05/31/20 Guaifenesin (Mucinex) 1,200 Mg Tab.er.12h 1200 MG PO BID, #20 TAB Prov: Sissy Leal 05/31/20 Patient Instructions: Ankle Pain, Medical Screening Exam Additional Instructions: Take medications as directed. * Do not drink alcohol, drive, or operate heavy machinery while taking Tylenol # 3 as this may cause drowsiness. * Follow up with ENT Specialist for chronic sensation in throat * Follow up with an [employer] in 3-5 days regarding your left ankle pain, even if your symptoms have resolved. If symptoms persist MRI may be required at the discretion of your PCP or Ortho Specialist. --Please review list of primary care clinics, if you do not already have a primary care provider who can give you an Orthopedic Referral. Return sooner to ED if new symptoms occur, or current symptoms become worse. - Please note that this Emergency Department Report was dictated using [employer] circulating technology software, occasionally this can lead to erroneous entry secondary to interpretation by the dictation equipment. Sissy Leal May 31, 2020 15:40
[2020-05-31] MEDS ORDERED: MUCINEX1200 MG PO (15:51)
[2020-05-31] MEDS ORDERED: FAMOTIDINE20 MG ORAL (15:51)
[2020-05-31] MEDS ORDERED: ACETAMINOPHEN-1 EAC1 ORAL (15:51)
[2020-05-31 16:11] VITALS: BP 125/74
--- NOTE | 2020-05-31 16:11 | NUR ---
ER DISCHARGE NOTE: Patient is cleared to be discharged per PA, pt is aox4, on room air, with stable vital signs. pt was given dc and prescription instructions, pt was able to verbalize understanding, pt id band removed. pt is able to ambulate with steady gait. pt took all belongings.
== END 2020-05-31 16:11 | disposition home or self-care (01) ==
LOC: EMR 15:40
DX: R07.0 Pain in throat (principal); M25.572 Pain in left ankle and joints of left foot
CPT/HCPCS: 99282

== ENCOUNTER 2020-06-07 22:34 | Emergency (ER) | payer MEDICAID ==
[~2020-06-07] VITALS: Ht 172.7 cm; Wt 77.1 kg
[~2020-06-07 22:34] MED LIST changes: +ACETAMINOPHEN-1 EAC1 ORAL; +FAMOTIDINE20 MG ORAL; +MUCINEX1200 MG PO
[2020-06-07 23:15] VITALS: BP 125/78
--- NOTE | 2020-06-07 23:15 | NUR ---
Nurse Note: PT walked in c/o pain, bumps, and irriation on genitals since 06/05. Pt stated there are 2 large lumps on the RT side of genital. Pt stated his genitals are now enlarged. No difficulty urination and BM. Pt stated he has unprotected sex with his fiance. ERMD at pt side; all safety measures met, will continue to montior.
--- NOTE | 2020-06-07 23:32 | Emergency Room Report ---
History of Present Illness General Chief Complaint: Male Urogenital Problems Present Illness HPI 29-year-old male with no past medical history here with a single bump on the shaft of his penis. He noticed it 2 days ago. Patient is sexually active with his fiance and does not use condoms. He is adamant that he nor his partner have had intercourse with anybody else over the past 11 years. She has not been complaining of any lesions or pain whatsoever. Denies fevers, chills, discharge, testicular pain or swelling or trauma. 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 Review of Systems All Other Systems: negative except mentioned in HPI Physical Exam Vital Signs Date Time Temp Pulse Resp B/P (MAP) Pulse Ox O2 Delivery O2 Flow Rate FiO2 06/07/20 23:04 97.9 71 16 125/78 (94) 98 Room Air Sp02 EP Interpretation: reviewed, normal General Appearance: no apparent distress, alert, non-toxic Head: normocephalic, atraumatic Eyes: bilateral eye normal inspection, bilateral eye PERRL ENT: hearing grossly normal, normal pharynx, no angioedema, normal voice Neck: full range of motion, supple/symm/no masses Respiratory: chest non-tender, lungs clear, normal breath sounds, speaking full sentences Cardiovascular #1: regular rate, rhythm, no edema Cardiovascular #2: 2+ carotid (R), 2+ carotid (L), 2+ radial (R), 2+ radial (L) , 2+ dorsalis pedis (R), 2+ dorsalis pedis (L) Gastrointestinal: normal bowel sounds, non tender, soft, non-distended, no guarding, no rebound Rectal: deferred Genitourinary: no CVA tenderness, other - Single 0.5 cm red nodule on the distal shaft of the penis. Patient uncircumcised. No drainage or surrounding erythema. No testicular pain. No other nodules. No open sores. No lymphadenopathy Musculoskeletal: back normal, normal range of motion, calf tenderness, gait/ station normal, non-tender Neurologic: alert, motor strength/tone normal, oriented x3, sensory intact, responsive, speech normal Psychiatric: judgement/insight normal, memory normal, mood/affect normal, no suicidal/homicidal ideation Reflexes: 3+ bicep (R), 3+ bicep (L), 3+ tricep (R), 3+ tricep (L), 3+ knee (R) , 3+ knee (L) Lymphatic: no adenopathy Medical Decision Making Diagnostic Impression: Primary Impression: Folliculitis ER Course 29-year-old male with no past medical history here with a red nodule on his penile shaft. This appeared to be folliculitis and was not not showing any signs of active drainage or surrounding cellulitis. He was uncircumcised but there was no indication of any fungal infection or other bacterial infection. He has no penile drainage. No dysuria. He had an otherwise normal physical examination. He was given instructions on keeping the area clean and told to come back to the emergency department if he experiences any open sores, dysuria , penile drainage or penile discharge. He expressed understanding and was discharged. Last Vital Signs Date Time Temp Pulse Resp B/P (MAP) Pulse Ox O2 Delivery O2 Flow Rate FiO2 06/07/20 23:04 97.9 71 16 125/78 (94) 98 Room Air Referrals: [facility],REFERRING (PCP) Davin Novoa M.D. Jun 07, 2020 23:32
[2020-06-07 23:35] VITALS: BP 125/78
--- NOTE | 2020-06-07 23:35 | NUR ---
ER DISCHARGE NOTE: Patient is cleared to be discharged per ERMD. Pt is aox4, on room air, with stable vital signs. Pt was given dc instructions. Pt was able to verbalize understanding; instructed pt to follow up with primary care physican within one week. Pt id band. Pt is able to ambulate with steady gait. Pt took all belongings. Addendum: 06/07/20 at 2340 by [email or web address] Nurse Note: Urine collected and sent to lab
[2020-06-08 00:04] LABS: APPEARANCE,URINE CLEAR; BILIRUBIN, URINE NEGATIVE (NEGATIVE); GLUCOSE, URINE (UA) NEGATIVE (NEGATIVE); KETONES,URINE 1+ (NEGATIVE); LEUKOCYTE ESTERASE ,URINE 1+ (NEGATIVE); NITRITE,URINE NEGATIVE (NEGATIVE); PH,URINE 7 (4.5-8.0); PROTEIN,URINE NEGATIVE (NEGATIVE); UROBILINOGEN,URINE NORMAL MG/DL (0.0-1.0)
[2020-06-08 00:05] LABS: COLOR,URINE YELLOW
== END 2020-06-07 23:35 | disposition home or self-care (01) ==
LOC: EMR 23:23
DX: L73.9 Follicular disorder, unspecified (principal)
CPT/HCPCS: 81003; Z7502; 99283

== ENCOUNTER 2020-09-26 16:16 | Emergency (ER) | payer MEDICAID ==
[~2020-09-26] VITALS: Ht 172.7 cm; Wt 119.7 kg
[2020-09-26] MEDS ORDERED: Ketorolac 30mg Inj IV ONE (16:30)
[2020-09-26] MEDS ORDERED: Omnipaque-300 100ml vial INJ PRN (16:30)
[2020-09-26 16:56] VITALS: BP 132/81
[2020-09-26 17:32] LABS: ANION GAP 7 mmol/L (5-15); BLOOD UREA NITROGEN 15 mg/dL (7-18); CARBON DIOXIDE 27 MMOL/L (21-32); CHLORIDE 105 MMOL/L (98-107); CREATININE 1.4 MG/DL (0.55-1.30); SODIUM 138 MMOL/L (136-145)
[2020-09-26 17:38] LABS: ALANINE AMINOTRANSFERASE 36 U/L (12-78); ALBUMIN 4.1 G/DL (3.4-5.0); ALBUMIN/GLOBULIN RATIO 1.1 (1.0-2.7); ALKALINE PHOSPHATASE 65 U/L (46-116); ASPARTATE AMINO TRANSFERASE 36 U/L (15-37)
[2020-09-26 18:03] LABS: BASOPHILS % (AUTO) 1.2 % (0.0-2.0); EOSINOPHILS % (AUTO) 0.1 % (0.0-3.0); HEMATOCRIT 43.2 % (42.0-52.0); HEMOGLOBIN 15.2 G/DL (14.2-18.0); LYMPHOCYTES % (AUTO) 12.4 % (20.0-45.0); MEAN CORPUSCULAR VOLUME 86 FL (80-99); MONOCYTES % (AUTO) 4.4 % (1.0-10.0); NEUTROPHILS % (AUTO) 81.9 % (45.0-75.0); PLATELET COUNT 284 K/UL (150-450); RED BLOOD COUNT 5.03 M/UL (4.70-6.10); RED CELL DISTRIBUTION WIDTH 13.1 % (11.6-14.8); WHITE BLOOD COUNT 9.5 K/UL (4.8-10.8)
--- NOTE | 2020-09-26 18:08 | Emergency Room Report ---
History of Present Illness General Chief Complaint: Abdominal Pain Present Illness HPI 29-year-old male with history of gastritis here complaining of few days abdominal pain vomiting, diarrhea, constipation and chills. Reports that symptoms started after eating seafood. Denies tobacco, alcohol intake. Denies chest pain, shortness of breath, cough or congestion. Has not taken medication for symptom relief. Allergies: Coded Allergies: No Known Allergies (Unverified , 03/11/13) COVID-19 Screening Contact w/high risk pt: No Recent Travel to affected area: No Experienced COVID-19 symptoms?: No COVID-19 symptoms experienced: Shortness of Breath COVID-19 Testing performed [employer]: No Patient History Past Medical History: see triage record Past Surgical History: none Pertinent Family History: none Immunizations: UTD Reviewed Nursing Documentation: PMH: Agreed; PSxH: Agreed Review of Systems All Other Systems: negative except mentioned in HPI Physical Exam Vital Signs Date Time Temp Pulse Resp B/P (MAP) Pulse Ox O2 Delivery O2 Flow Rate FiO2 09/26/20 16:22 98.6 94 18 132/81 (98) 99 Room Air Sp02 EP Interpretation: reviewed, normal General Appearance: alert, non-toxic, obese Head: normocephalic, atraumatic Eyes: bilateral eye normal inspection, bilateral eye PERRL ENT: hearing grossly normal, normal pharynx, no angioedema, normal voice Neck: full range of motion, supple/symm/no masses Respiratory: chest non-tender, lungs clear, normal breath sounds, no rhonchi, speaking full sentences Cardiovascular #1: regular rate, rhythm, no edema Gastrointestinal: normal bowel sounds, non tender, soft, no mass, no organomegaly, no peritonitis, no bruit, non-distended, no guarding, no hernia, no pulsatile mass, no rebound Rectal: deferred Genitourinary: no CVA tenderness Musculoskeletal: back normal Neurologic: alert, motor strength/tone normal, oriented x3, sensory intact, responsive, speech normal Psychiatric: judgement/insight normal, memory normal, mood/affect normal, no suicidal/homicidal ideation Skin: no rash Lymphatic: no adenopathy Medical Decision Making PA Attestation All diagnoses and treatment plans were reviewed and discussed with my supervising physician Dr. Gonzales Diagnostic Impression: Primary Impression: Acute gastritis ER Course 29-year-old male with history of gastritis here complaining of few days abdominal pain vomiting, diarrhea, constipation and chills. Reports that symptoms started after eating seafood. Denies tobacco, alcohol intake. Denies chest pain, shortness of breath, cough or congestion. Has not taken medication for symptom relief. Ddx considered but are not limited to: appendicitis, cholecystis, gastritis, gastroenteritis, UTI, pyelonephritis, SBO, diverticulitis, influenza with GI manifestation, Vital signs: are WNL, pt. is afebrile H&PE are most consistent with: Gastritis ORDERS: CBC, CMP, UA, lipase, Pepcid, Zofran, dicyclomine ED INTERVENTIONS: NS bolus, Zofran, Pepcid, Toradol DISCHARGE: At this time pt. is stable for d/c to home. Will provide printed patient care instructions, and any necessary prescriptions. Care plan and follow up instructions have been discussed with the patient prior to discharge. Advised patient to follow primary care provider if worsening symptoms return to the emergency room at this time I do not believe patient needs any further imaging his abdomen is nontender and patient is not guarding. Advised patient to return to the emergency room if worsening symptoms. Last Vital Signs Date Time Temp Pulse Resp B/P (MAP) Pulse Ox O2 Delivery O2 Flow Rate FiO2 09/26/20 17:31 98.6 09/26/20 16:56 82 18 132/81 99 Room Air Disposition: HOME, SELF-CARE Condition: Stable Scripts Dicyclomine Hcl* (DICYCLOMINE HCL*) 10 Mg Capsule 10 MG ORAL TID, #10 CAP Prov: Kia Goldberg 09/26/20 Ondansetron* (ZOFRAN*) 4 Mg Tablet 4 MG ORAL Q6H PRN for Nausea & Vomiting, #14 TAB Prov: Kia Goldberg 09/26/20 Famotidine* (Pepcid 20mg tablet*) 20 Mg Tablet 20 MG ORAL DAILY for Gerd, #30 TAB 0 Refills Prov: Kia Goldberg 09/26/20 Referrals: NON PHYSICIAN (PCP) Patient Instructions: Abdominal Pain, Adult Additional Instructions: Avoid eating spicy acidic food, take medication as directed, follow primary care provider, if worsening symptoms return to the emergency room Kia Goldberg Sep 26, 2020 18:08
[2020-09-26] MEDS ORDERED: FAMOTIDINE20 MG ORAL (18:09)
[2020-09-26] MEDS ORDERED: DICYCLOMINE HCL10 MG ORAL (18:09)
[2020-09-26] MEDS ORDERED: ZOFRAN4 M3 ORAL (18:09)
[2020-09-26 18:14] VITALS: BP 130/78
[2020-09-26 18:14] LABS: APPEARANCE,URINE CLEAR; BILIRUBIN, URINE NEGATIVE (NEGATIVE); COLOR,URINE PALE YELLOW; GLUCOSE, URINE (UA) NEGATIVE (NEGATIVE); KETONES,URINE NEGATIVE (NEGATIVE); LEUKOCYTE ESTERASE ,URINE NEGATIVE (NEGATIVE); NITRITE,URINE NEGATIVE (NEGATIVE); PH,URINE 8 (4.5-8.0); PROTEIN,URINE NEGATIVE (NEGATIVE); UROBILINOGEN,URINE NORMAL MG/DL (0.0-1.0)
[2020-09-26 18:15] VITALS: BP 130/78
== END 2020-09-26 18:15 | disposition home or self-care (01) ==
LOC: EMR 16:56
DX: K29.70 Gastritis, unspecified, without bleeding (principal)
CPT/HCPCS: 36415; 80053; 81003; 83690; 85025; 96361; 96374; 96375; J1885; J2405; J7030; S0028; Z7502; 99284

== ENCOUNTER → 2020-10-01 | Emergency (ER) | payer MEDICAID ==
[~2020-10-01] VITALS: Ht 172.7 cm; Wt 119.7 kg
[~2020-10-01] MED LIST changes: +DICYCLOMINE HCL10 MG ORAL; +Dicyclomine 10mg Cap ORAL ONE; +Metoclopramide 10mg/2ml Inj IVP ONE; +Milk of Magnesia 30ml Ud ORAL ONE; +Omnipaque-300 100ml vial INJ PRN; +PROTONIX40 MG ORAL
[2020-10-01 11:36] VITALS: BP 136/94
--- NOTE | 2020-10-01 11:36 | NUR ---
ED Nurse Note: Pt walke din to Ed from home c/o abdominal pain for couple of weeks. Pt was seen here last 09/26/20 for the same sx and was dc with mylanta and dicyclomine but pt stated the pain is consistent. Deneis nausea/ vomiting/ diarrhea. No fever/ chills. AAOx4, no SOB.
--- NOTE | 2020-10-01 12:10 | NUR ---
ED Nurse Note: Xray at bedside.
[2020-10-01 12:54] LABS: BASOPHILS % (AUTO) 1.8 % (0.0-2.0); EOSINOPHILS % (AUTO) 0.7 % (0.0-3.0); HEMATOCRIT 44.9 % (42.0-52.0); HEMOGLOBIN 15.5 G/DL (14.2-18.0); LYMPHOCYTES % (AUTO) 33.2 % (20.0-45.0); MEAN CORPUSCULAR VOLUME 87 FL (80-99); MONOCYTES % (AUTO) 5.9 % (1.0-10.0); NEUTROPHILS % (AUTO) 58.4 % (45.0-75.0); PLATELET COUNT 284 K/UL (150-450); RED BLOOD COUNT 5.18 M/UL (4.70-6.10); RED CELL DISTRIBUTION WIDTH 13.4 % (11.6-14.8); WHITE BLOOD COUNT 5.4 K/UL (4.8-10.8)
[2020-10-01 13:07] LABS: ANION GAP 3 mmol/L (5-15); BLOOD UREA NITROGEN 12 mg/dL (7-18); CALCIUM 8.7 MG/DL (8.5-10.1); CARBON DIOXIDE 31 MMOL/L (21-32); CHLORIDE 106 MMOL/L (98-107); CREATININE 1.3 MG/DL (0.55-1.30); SODIUM 140 MMOL/L (136-145)
[2020-10-01 13:08] LABS: APPEARANCE,URINE CLEAR; BILIRUBIN, URINE NEGATIVE (NEGATIVE); COLOR,URINE PALE YELLOW; GLUCOSE, URINE (UA) NEGATIVE (NEGATIVE); KETONES,URINE NEGATIVE (NEGATIVE); LEUKOCYTE ESTERASE ,URINE NEGATIVE (NEGATIVE); NITRITE,URINE NEGATIVE (NEGATIVE); PH,URINE 6.5 (4.5-8.0); PROTEIN,URINE NEGATIVE (NEGATIVE); UROBILINOGEN,URINE NORMAL MG/DL (0.0-1.0)
[2020-10-01 13:11] LABS: ALANINE AMINOTRANSFERASE 26 U/L (12-78); ALBUMIN 3.7 G/DL (3.4-5.0); ALKALINE PHOSPHATASE 60 U/L (46-116); ASPARTATE AMINO TRANSFERASE 25 U/L (15-37); BILIRUBIN,TOTAL 0.9 MG/DL (0.2-1.0)
--- NOTE | 2020-10-01 13:15 | NUR ---
ED Nurse Note: Pt was taken to CT via wc by a tech.
--- NOTE | 2020-10-01 13:16 | Emergency Room Report ---
History of Present Illness General Chief Complaint: Abdominal Pain Source: Patient Present Illness HPI 29-year-old -French male represents for abdominal pain and diarrhea x7 days. Patient was seen last [place] for similar complaint. [place] better after GI cocktail, but symptoms recurred. He admits to nausea and diarrhea that is nonbloody. Symptoms started after he ate poke. States that when he has bad diarrhea his chest will intermittently hurt. Otherwise denies fevers, chills, hematuria, dysuria, scrotal/testicular pain, ongoing chest pain, vomiting, weakness, rash, headache, photophobia or other symptoms The patient's symptoms were gradual onset, severity was moderate, duration since 7 days. Quality: Nonbloody Past medical history: Denies Past surgical history: Denies Smoking: Denies Alcohol use: Denies Drug use: Positive Review of systems: CONST: No fevers or chills, No night sweats PULMONARY: No productive cough, No shortness of breath CARDIAC: No chest pain, No palpitations GI: No vomiting, ++ diarrhea , No melena_or_BRBPR : No dysuria, No hematuria, No discharge NEURO: No new_focal_weakness_or_numbness, No confusion, No vision changes 14 point Review of Systems is otherwise negative except per HPI Physical Exam: GENERAL: Awake_alert_ nontoxic, no acute distress Spo2 98% on RA -normal. Obese EYES: Extraocular muscles are intact. Conjunctivae clear. Lids without swelling ENT: External nose and ear normal_in_appearance. Oropharynx clear. Head_atraumatic, Moist_oral_mucosa NECK: No JVD. No meningismus. No thyromegaly. Supple. Trachea midline RESP: Normal respiratory effort. Symmetric rise. No stridor. Clear_to_auscultation_No_rales_No_wheezes CARDIAC: Regular rate and rhythm ABDOMEN: Soft. Nondistended. Nontender_No_rebound_or_guarding. Negative Abd[place] sign. Negative Rovsing. No CVA tenderness to palpation. MSK: Normal muscle tone, without rigidity. Extremities without asymmetric deformity or swelling. SKIN: Warm and dry. No visible cyanosis or pallor NEUROLOGIC: Alert, oriented x3. Motor_and_sensation_grossly_intact. No truncal ataxia. Gait_normal Psych: Normal mood and affect, normal judgment and insight - COORDINATION OF CARE Case was discussed with: Patient Any labs and imaging that were ordered were interpreted as part of the medical decision making: I reviewed previous chart. Labs were unremarkable. Medical Decision Making/Plan: Differential diagnosis includes gastritis, PUD, cholecystitis, choledocholithiasis, hepatitis, small bowel obstruction, volvulus, AAA, pancreatitis, atypical appendicitis, gastroparesis, gastritis, peptic ulcer disease, among others. Patient is well appearing with stable vital signs. Abdominal exam is non peritoneal with no guarding or rebound. Labs show no acute abnormalities. EKG shows no signs of ischemia. CT shows no acute disease. Incidentally shows renal cysts. No abscess. No acute surgical abnormalities. The patient denies any bloody stool and has no pain out of proportion to exam, and no significant risk factors for mesenteric ischemia such as atrial fibrillation or severe PAD/PVD (peripheral arterial / vascular disease), thus definitive workup to rule out mesenteric ischemia was not pursued. Patient is afebrile, without any significant tenderness in the RUQ, and a negative [place] sign. The patients presentation does not appear to be consistent with acute cholecystitis and thus definitive imaging to rule it out was not pursued. The patient has no significant risk factors for AAA (abdominal aortic aneurysm) such as age over 50 with history of hypertension, connective tissue disorder, or 1st degree relative with AAA. the patient has normal dorsalis pedis pulses, no radiation of pain to the back, and no pulsatile mass felt on exam. The patients profile was overall low risk for AAA and definitive workup was not pursued. The patients symptoms are not consistent with ACS (acute coronary syndrome), symptoms are not exertional, EKG without obvious ischemic change. The patient appears stable for discharge with abdominal_recheck_in_24_hours, and understand to return to the ED immediately if symptoms change or worsen. Pertinent results reviewed with the patient. I educated the patient on the current treatment plan including the risks, benefits, and alternatives. I also discussed the extent and limitations of the current evaluation. The patient expressed understanding and agreement with plan. I recommended PMD follow-up within 1-2 days. Also advised that the patient return to the Emergency Department as soon as possible if they experience any new, persistent, or worsening symptoms. Allergies: Coded Allergies: No Known Allergies (Unverified , 03/11/13) COVID-19 Screening Contact w/high risk pt: No Recent Travel to affected area: No Experienced COVID-19 symptoms?: No COVID-19 symptoms experienced: Shortness of Breath COVID-19 Testing performed PHARMACEUTICAL DEVELOPMENT TECHNICIAN: No Nursing Documentation-PMH Past Medical History: No History, Except For Physical Exam Vital Signs Date Time Temp Pulse Resp B/P (MAP) Pulse Ox O2 Delivery O2 Flow Rate FiO2 10/01/20 11:35 98.1 86 20 136/94 (108) 96 Room Air Sp02 EP Interpretation: reviewed, normal Medical Decision Making Diagnostic Impression: Primary Impression: Acute gastritis Additional Impressions: Diarrhea Renal cyst Abdominal cramping EKG Diagnostic Results [facility] 12-lead EKG (interpreted by ) Time: 1217 Indication: Rhythm analysis Tracing visualized and Interpreted by me. Rhythm: Normal sinus rhythm Rate: 70 bpm QTc: 401 Morphology: No_significant_ST_elevations_or_depressions, No STEMI Impression: Normal_sinus_rhythm_without_significant_abnormality. Ectopy. Sinus arrhythmia Rhythm Strip Diag. Results Rhythm Strip Time: 14:15 EP Interpretation: yes Rate: 96 Rhythm: no PVC's, no ectopy Chest X-Ray Diagnostic Results Chest X-Ray Diagnostic Results : [facility] Chest X-Ray: Views: [ 1 ] view(s) Indication: Chest pain Findings: Normal heart size. Mediastinum normal. No infiltrate. Impression: No acute disease The X-ray(s) were independently viewed and interpreted contemporaneously Electronically signed by Rosa ye, CT/MRI/US Diagnostic Results CT/MRI/US Diagnostic Results : Impression CT Abdomen Pelvis w/Contrast Clinical Indication: Abdominal pain and diarrhea Findings: Lack of enteric contrast limits assessment of the GI tract. The appendix is normal. No evidence of diverticulosis or diverticulitis. No small bowel distention. No free or loculated intraperitoneal gas or fluid is evident. The distal esophagus, stomach, duodenum are unremarkable. The liver, gallbladder, bile ducts, pancreas, spleen, adrenals are unremarkable. The left kidney demonstrates a small cyst. The right kidney demonstrates a tiny subcentimeter low-attenuation lesion coming off of the lower pole, too small to characterize, most likely a benign simple cortical cysts. No retroperitoneal or mesenteric mass or adenopathy. No pelvic mass or adenopathy. The included lung bases are clear. The bones demonstrate no evidence of acute fracture. Impression: Limited assessment of the GI tract, due to lack of enteric contrast administration No definite acute abnormality Incidental finding left renal cyst and probable small right renal cyst Reevaluation Time: 13:15 Last Vital Signs Date Time Temp Pulse Resp B/P (MAP) Pulse Ox O2 Delivery O2 Flow Rate FiO2 10/01/20 11:36 86 20 Room Air 10/01/20 11:36 98.1 136/94 96 Status: improved Disposition: HOME, SELF-CARE Admit Decision Time: 13:15 Condition: Stable Scripts Pantoprazole* (PROTONIX*) 40 Mg Tablet. 40 MG ORAL DAILY for 30 Days, #30 TAB Prov: Rosa Escobedo D.O. 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 Avoid fatty, greasy, spicy, foods Follow-up with your doctor sooner if your condition requires a more timely clinical reevaluation. Return to the emergency department immediately if you feel that your condition is worsening or if you have any new or concerning symptoms. Review your discharge instructions and take any prescriptions given as instructed. [facility] PROVIDES FREE OR LOW-COST HEALTH SERVICES TO PEOPLE WHO CAN SHOW PROOF THAT THEY LIVE IN [facility]. TO FIND MORE CLINICS PARTNERED WITH THE [facility] TO PROVIDE SERVICE, PLEASE CALL . Rosa Escobedo D.O. Oct 01, 2020 13:16
--- NOTE | 2020-10-01 14:07 | Diagnostic Imaging Report ---
Clinical Indication: Abdominal pain and diarrhea Technique: No oral contrast utilized, per emergency room physician request IV administration nonionic contrast. Venous phase spiral acquisition obtained through the abdomen and pelvis. Multiplanar reconstructions were generated. Total dose length product 848 mGycm. CTDIvol(s) 15 mGy. Dose reduction achieved using automated exposure control Comparison: 11/08/2007 Findings: Lack of enteric contrast limits assessment of the GI tract. The appendix is normal. No evidence of diverticulosis or diverticulitis. No small bowel distention. No free or loculated intraperitoneal gas or fluid is evident. The distal esophagus, stomach, duodenum are unremarkable. The liver, gallbladder, bile ducts, pancreas, spleen, adrenals are unremarkable. The left kidney demonstrates a small cyst. The right kidney demonstrates a tiny subcentimeter low-attenuation lesion coming off of the lower pole, too small to characterize, most likely a benign simple cortical cysts. No retroperitoneal or mesenteric mass or adenopathy. No pelvic mass or adenopathy. The included lung bases are clear. The bones demonstrate no evidence of acute fracture. Impression: Limited assessment of the GI tract, due to lack of enteric contrast administration No definite acute abnormality Incidental finding left renal cyst and probable small right renal cyst The CT scanner at [facility] is accredited by the [employer] and the scans are performed using protocols designed to limit radiation exposure to as low as reasonably achievable to attain images of sufficient resolution adequate for diagnostic evaluation.
[2020-10-01 14:32] VITALS: BP 128/75
--- NOTE | 2020-10-01 14:32 | NUR ---
ED Nurse Note: Pt cleared by ERMD for discharge. DC instructions/prescription was given and explained to pt and verbalized understanding of teachings. All medical deviecs such as ID band and IV line removed. Pt is AAO x4, ambulatory and left with all personal belongings.
--- NOTE | 2020-10-01 14:48 | Diagnostic Imaging Report ---
Indication: Chest pain Technique: One view of the chest Comparison: 01/24/2020 Findings: Lungs and pleural spaces are clear. Heart size is normal. Impression: No acute process
== END | disposition home or self-care (01) ==
LOC: EMR 13:28
DX: K29.70 Gastritis, unspecified, without bleeding (principal); R19.7 Diarrhea, unspecified; N28.1 Cyst of kidney, acquired; R10.9 Unspecified abdominal pain
CPT/HCPCS: 36415; 71045; 74177; 80053; 80307; 81003; 83690; 84484; 85025; 93005; 96361; 96374; J2765; Q9965; Z7502; 99284